=== PATIENT | female | born 1995 | race Caucasian/White ===

== ENCOUNTER 2017-04-05 03:07 | Inpatient (IN) | payer OTHER ==
[2017-04-05] MEDS ORDERED: AMPICILLIN - 100 ML IVPB ONE ×2 (03:30→05:00)
[2017-04-05 04:17] LABS: BASOPHIL 0.7 % (0-2.0); EOSINOPHIL 0.7 % (0-4.5); MCH 24.8 pg (25.7-33.7); MCHC 31.6 g/dl (32.0-36.0); MEAN CELL VOLUME 78.5 fl (80-96); MEAN PLT VOLUME 8.9 fl (7.5-11.1); NEUTROPHILS 70.1 % (42.8-82.8); PLATELET COUNT 230 K/MM3 (134-434); RDW 19.6 % (11.6-15.6)
[2017-04-05 04:30] LABS: INR 0.97 (0.82-1.09); PROTHROMBIN TIME (PATIENT) 10.7 SEC (9.98-11.88)
[2017-04-05] MEDS ORDERED: DEXTROSE 5%-LACTATED RINGERS 1,000 ML IV SCH ×2 (04:30→05:00)
[2017-04-05 04:32] LABS: ACTIVATED PTT 26.9 SECONDS (26.9-34.4)
[2017-04-05 04:35] VITALS: BMI 26.4
[2017-04-05 04:46] LABS: ANION GAP 8 (8-16); CALCIUM 8.4 mg/dL (8.5-10.1); CO2 22 mmol/L (21-32); CREATININE 0.5 mg/dL (0.55-1.02); GLUCOSE,RANDOM 83 mg/dL (74-106)
--- NOTE | 2017-04-05 04:59 | HP ---
Admitting History and Physical - Admission Chief Complaint: labor pains History of Present Illness: 22 y/o G1 at 40.3 comes with complaints of labor pains, HIV neg, GBS pos, hep neg, rpr neg. She is a pt of [facility] and has attended her visits. No complications. History Source: Patient Limitations to Obtaining History: No Limitations - Past Medical History [employer]: No: Alzheimer's, CVA, Dementia, Migraine, Multiple Sclerosis, Peripheral Neuropathy, Parkinson's, Seizure, Syncope, TIA, Vertigo, Other Cardiovascular: No: AFIB, Aneurysm, Aortic Insufficiency, Aortic Stenosis, CAD, CHF, Deep Vein Thrombosis, HTN, Hyperlipdemia, OH, Mitral Insufficiency, Mitral Stenosis, Murmur, Pulmonary Hypertension, Other Pulmonary: No: Asthma, Bronchitis, Cancer, COPD, O2 Dependent, Pneumonia, Previously Intubated, Pulmonary Embolus, Pulmonary Fibrosis, Sleep Apnea, Other Gastrointestinal: No: Ascites, Cancer, Constipation, Crohn's Disease, Diverticulitis, Diverticulosis, Esophageal Varices, Gastritis, GERD, GI Bleed, Hemorrhoids, Hiatal Hernia, Inflamatory Bowel Disease, Irritable Bowel Disease, Pancreatitis, Peptic Ulcer Disease, Ulcerative Colitis, Other Hepatobiliary: No: Cirrhosis, Cholelithiasis, Cholecystitis, Choledocholithiasis , Hepatitis A, Hepatitis B, Hepatitis C, Other Renal/: No: Renal Failure, Renal Inusuff, BPH, Cancer, Hematuria, Hemodialysis , Neurogenic Bladder, Renal Calculi, UTI, Other Reproductive: No: Ectopic , Endometriosis, Fibroids, PID, Polycystic Ovary Syndrome, Postmenopausal, Other ...: 1 ...Para: 0 Heme/Onc: No: Anemia, B12 Deficiency, Bleeding Disorder, Cancer, Current Chemotherapy, Current Radiation Therapy, Hemochromatosis, Hypercoaguable State, Myeloproliferative Synd, Sickle Cell Disease, Sickle Cell Trait, Thrombocytopenia, Other Infectious Disease: No: AIDS, C-Diff, Herpes Zoster, HIV, MRSA, STD's, Tuberculosis, VREF, Other Psych: No: Addictions, Anxiety, Bipolar, Depression, Panic, Psychosis, Schizophrenia, Other Musculoskeletal: No: Bursitis, Chronic low back pain, Hemiparesis, Hemiplegia, Osteoarthritis, Paraplegia, Other ENT: No: Allergic Rhinitis, Sinusitis, Other Endocrine: No: Lei's Disease, [place]'s Disease, Diabetes Insipidus, Diabetes Mellitus, Hyperparathyroidism, Hyperthyroidism, Hypothyroidism, Osteopenia, SIADH, Other - Past Surgical History Past Surgical History: No: None, AAA Repair, AICD, Amputation, Appendectomy, Arthrosocopy, AV Fistula/Graft, Bariatric Surgery, Breast Biopsy, Bypass, CABG, Carotid Endarterectomy, Cataract Removal, Cholecystectomy, Colectomy, Colonoscopy, Colostomy, Craniotomy, , Cystectomy, Hernia Repair, Hysterectomy, Ileal Conduit, Ileosotomy, Joint Replacement, Kidney Transplant, Laminectomy, Liver Transplant, Mastectomy, Nephrectomy, Oopherectomy, Orchiectomy, Permanent Pacemaker, Prostatectomy, Splenectomy, Stent, Thoracotomy , TURP, Tonsillectomy, Tubal Ligation, Upper Endoscopy, Valve Replacement, Vasectomy, Vein Stripping/Ligation - Smoking History Smoking history: Never smoked - Alcohol/Substance Use Hx Alcohol Use: No History of Substance Use: denies: None, Cocaine, Heroin, Marijuana, Prescription , Tranquilizers - Social History Usual Living Arrangement: No: Alone, With Spouse, With Parent, With Significant Other, With Child, Assisted Living, [facility], Other Home Medications - Allergies Allergies/Adverse Reactions: Allergies Allergy/AdvReac Type Severity Reaction Status Date / Time No Known Drug Allergies Allergy Verified 04/05/17 04:19 - Home Medications Home Medications: Ambulatory Orders Vit Calc,Iron,Folic [ Vitamins] 1 each PO DAILY 04/05/17 Review of Systems - Review of Systems Constitutional: reports: No Symptoms Eyes: reports: No Symptoms HENT: reports: No Symptoms Neck: reports: No Symptoms Cardiovascular: reports: No Symptoms Respiratory: reports: No Symptoms Gastrointestinal: reports: No Symptoms Genitourinary: reports: No Symptoms Musculoskeletal: reports: No Symptoms Integumentary: reports: No Symptoms Neurological: reports: No Symptoms Endocrine: reports: No Symptoms Hematology/Lymphatic: reports: No Symptoms Psychiatric: reports: No Symptoms Physical Examination Vital Signs: Vital Signs Temperature 97.9 F 04/05/17 03:16 Pulse Rate 66 04/05/17 03:16 Respiratory Rate 04/05/17 03:16 Blood Pressure 130/68 04/05/17 03:16 O2 Sat by Pulse Oximetry (%) Constitutional: Yes: Well Nourished Eyes: Yes: WNL HENT: Yes: WNL Neck: Yes: WNL Cardiovascular: Yes: WNL Respiratory: Yes: WNL Gastrointestinal: Yes: WNL Breast(s): Yes: WNL Musculoskeletal: Yes: WNL Extremities: Yes: WNL (9cm/0/100 fht 150) Labs: CBC, BMP 04/05/17 03:30 04/05/17 03:30 Assessment/Plan as above continue care expect
--- NOTE | 2017-04-05 06:02 | PN ---
Delivery - Delivery Vaginal Delivery: No Problems Type of Anesthesia: Local Episiotomy/Laceration: Midline EBL (cc): 300 Delivery, Single - Feeding Plan Initial Plan: Elected not to breastfeed exclusively throughout hospitalization
[2017-04-05] MEDS ORDERED: METHYLERGONOVINE MALEATE 0.2 MG/1 ML AMP IM PRN (06:03)
[2017-04-05] MEDS ORDERED: BISACODYL 10 MG SUPP.RECT RC PRN (06:03)
[2017-04-05] MEDS ORDERED: BENZOCAINE 28 GM HEMORRHOIDAL OINTMENT TP PRN (06:03)
[2017-04-05] MEDS ORDERED: WITCH HAZEL 50% (TUCKS) 40 PAD/JAR PAD TP PRN (06:03)
[2017-04-05] MEDS ORDERED: BENZOCAINE 20% 57 GM BOTTLE TP PRN (06:03)
[2017-04-05] MEDS ORDERED: OXYTOCIN 20 UNITS in 0.9% NS 1,000 ML IV SCH (06:15)
[2017-04-05] MEDS ORDERED: AMPICILLIN - 100 ML IVPB SCH (07:30)
[2017-04-05] MEDS: ACETAMINOPHEN 325 MG TABLET (FP) PO PRN (11:08)
[2017-04-05] MEDS: IBUPROFEN 600 MG TABLET (FP) PO PRN (11:10)
--- NOTE | 2017-04-06 05:29 | PN ---
Post Progress Note - Subjective Subjective: c/o pain , cramps Post Day: 1 Type of Delivery: Vital Signs: Vital Signs Temperature 98.5 F 04/06/17 01:54 Pulse Rate 74 04/06/17 01:54 Respiratory Rate 18 04/06/17 01:54 Blood Pressure 117/71 04/06/17 01:54 O2 Sat by Pulse Oximetry (%) 100 04/05/17 07:30 Breast Exam: Yes: Soft, Other (BF). No: Engorged Uterus: Yes: Fundus Firm, Fundus below umbilicus, Non-tender Lochia: Yes: Rubra Lochia, amount: Moderate Extremities: Yes: Calves non-tender Perineum: Yes: Episiotomy (healing ) Activity: Ambulating - Labs Labs: CBC WBC 9.0 K/mm3 (4.0-10.0) 04/05/17 03:30 RBC 3.80 M/mm3 (3.60-5.2) 04/05/17 03:30 Hgb 9.4 GM/dL (10.7-15.3) L 04/05/17 03:30 Hct 29.8 % (32.4-45.2) L 04/05/17 03:30 MCV 78.5 fl (80-96) L 04/05/17 03:30 MCHC 31.6 g/dl (32.0-36.0) L 04/05/17 03:30 RDW 19.6 % (11.6-15.6) H 04/05/17 03:30 Plt Count 230 K/MM3 (134-434) 04/05/17 03:30 MPV 8.9 fl (7.5-11.1) 04/05/17 03:30 Neutrophils % 70.1 % (42.8-82.8) 04/05/17 03:30 Lymphocytes % 18.2 % (8-40) 04/05/17 03:30 Monocytes % 10.3 % (3.8-10.2) H 04/05/17 03:30 Eosinophils % 0.7 % (0-4.5) 04/05/17 03:30 Basophils % 0.7 % (0-2.0) 04/05/17 03:30 Assessment/Plan stable anemia counselled repeat cbc today discharge tomorrow.
[2017-04-06 08:08] LABS: MCH 25.1 pg (25.7-33.7); MCHC 31.8 g/dl (32.0-36.0); MEAN CELL VOLUME 79.1 fl (80-96); MEAN PLT VOLUME 8.5 fl (7.5-11.1); PLATELET COUNT 187 K/MM3 (134-434); RDW 19.4 % (11.6-15.6); WHITE BLOOD COUNT 10.1 K/mm3 (4.0-10.0)
[2017-04-06] MEDS: IBUPROFEN 600 MG TABLET (FP) PO PRN ×3 (08:13→22:01)
[2017-04-06] MEDS: ACETAMINOPHEN 325 MG TABLET (FP) PO PRN ×3 (08:14→22:02)
[2017-04-06] MEDS: PRENATAL VITAMINS W/ FOLIC ACID TABLET (FP) PO SCH (09:11)
[2017-04-06] MEDS: FERROUS SO4 325 MG TABLET (FP) PO SCH ×2 (09:11→21:58)
[2017-04-06] MEDS ORDERED: SENNOSIDES/DOCUSATE COMBO (SENNA PLUS) TABLET (UD) PO PRN (22:00)
[2017-04-07] MEDS: ACETAMINOPHEN 325 MG TABLET (FP) PO PRN (09:45)
[2017-04-07] MEDS: PRENATAL VITAMINS W/ FOLIC ACID TABLET (FP) PO SCH (09:45)
[2017-04-07] MEDS: FERROUS SO4 325 MG TABLET (FP) PO SCH (09:45)
[2017-04-07] MEDS: IBUPROFEN 600 MG TABLET (FP) PO PRN (09:46)
[2017-04-07 09:52] VITALS: BP 130/73; PULSE 76; TEMP 98.4
--- NOTE | 2017-04-07 16:09 | PATH ---
Surgical Pathology Report Patient Name: SUSANNE TOLLIVER Med. Rec. #: [id number] /Age/Gender: 1995 (Age: 22) / F Account: [id number] Location: [facility] OBS/DOOR CLOSER Taken: 04/05/2017 Received: 04/05/2017 Reported: 04/07/2017 Physicians: Mookie Huff M.D. Specimen(s) Received PLACENTA Clinical History Not given Final Diagnosis PLACENTA, DELIVERY: GROSS UNREMARKABLE PLACENTA WITH ATTACHED THREE VESSEL UMBILICAL CORD. GROSS EXAM ONLY (SEE COMMENT). Comment: The specimen is returned to the patient per patient's request. Only gross examination is performed. Electronically Signed Anton Gaytan M.D. Gross Description Received fresh labeled with the patient's name and indicated on the requisition to be a placenta, is a 781 g, 21.0 x 16.5 x 2.5 cm placenta with attached membranes and umbilical cord. The membranes are [place], translucent with focal opacities and insert marginally. The attached umbilical cord measures 40 cm in length and averages 1.0 cm in diameter. The cord inserts eccentrically, 3 cm to the nearest margin. No true knots or strictures are identified. The maternal surface is beard-blue with minimal fibrin deposition and appropriate caliber vessels. The maternal surface is red-brown with focal defects. No sections are submitted and the specimen is returned to the patient, as per the patient's request. DL/04/05/2017 saudi/04/05/2017
== END 2017-04-07 13:30 | disposition home or self-care (01) | DRG 560 ==
LOC: JLDR 03:07 → J3W 07:57
PROVIDERS: ADMIT Obstetrics & Gynecology; ATTEND Obstetrics & Gynecology
PROC: 10E0XZZ Delivery of Products of Conception, External Approach (ICD-10-PCS; principal; 2017-04-05)
PROC: 0W8NXZZ Division of Female Perineum, External Approach (ICD-10-PCS; 2017-04-05)
DX: O80 Encounter for full-term uncomplicated delivery (principal); Z3A.40 40 weeks gestation of pregnancy; Z22.330 Carrier of Group B streptococcus; Z37.0 Single live birth
CPT/HCPCS: 36415; 59409; 80048; 80074; 85025; 85610; 85730; 86593; 86850; 86900; 86901; 88300-TC

== ENCOUNTER 2024-10-15 13:39 | Emergency (ER) | payer OTHER ==
[2024-10-15 14:18] VITALS: BP 111/55; PULSE 66; RESP 18; TEMP 98.2; BMI 26.2
[2024-10-15] MEDS ORDERED: LIDOCAINE 2.5%/PRILOCAINE 2.5% (5 Gram/TUBE) TP ONE (15:21)
[2024-10-15 17:59] LABS: HIV INTERPRETATION NEGATIVE (NEGATIVE)
== END 2024-10-15 16:27 | disposition home or self-care (01) ==
LOC: FER 13:39
PROC: 0XQPXZZ Repair Left Index Finger, External Approach (ICD-10-PCS; principal; 2024-10-15)
DX: S61.211A Laceration without foreign body of left index finger without damage to nail, initial encounter (principal); W26.0XXA Contact with knife, initial encounter
CPT/HCPCS: 36415; 86803; 87389; 99283-25